=== PATIENT | female | born 1955 | race Caucasian/White ===

== ENCOUNTER 2016-12-29 17:09 | Emergency (ER) | payer MEDICARE, OTHER ==
--- NOTE | ~2016-12-29 | CR127 ---
[facility] A Service of [facility] & [facility] RADIOLOGY TEXT RESULTS PATIENT: SHERRI MOE LOCATION: CFTX : 53 UNIT #: [id number] AGE: [address]: Susana Roa APRN SEX: F ORDER DR: [id number] [facility] [address] [facility]. [place], [place] [address] [id number] E MR#: [id number] Acc #: [id number] NAME: SHERRI MOE : 1955 SEX: F STUDY DATE/TIME: 12/29/2016 19:47 UNIT: [facility] ROOM: STUDY DESCRIPTION: CR Foot Complete Min 3 View Rt Attending Physician: Susana Roa A.P.R.N. Ordering Physician: Susana Roa A.P.R.N. Primary Care Physician: Ricky Cullen M.D. MEDICAL IMAGING REPORT This report is preliminary unless electronic signature is present EXAM Three views right foot. Date: 12/29/2016 HISTORY A 61-year-old female with the medial and plantar foot pain for 3 days. No known injury. COMPARISON None. FINDINGS No fracture. No joint dislocation. No significant osteoarthritic change. No retained radiopaque foreign body. Plantar arch is maintained. IMPRESSION Normal 3 views right foot. Dictated by... Spring Eng M.D. THIS IS AN ELECTRONICALLY VERIFIED REPORT Spring Eng M.D. at 01/02/2017 8:47 AM TREVOR/john TD: 12/30/2016 01:47 JOB #: [id number] MEDICAL IMAGING REPORT Page 1 of 1 COPY
[~2016-12-29 17:09] MED LIST: AMLODIPINE BESY10 MG PO; ASPIRIN81 M2 PO; CALCIUM + D 6001 TA1 PO; KCL PO; PRAVASTATIN SOD40 MG PO; VITAMIN D50000 UNIT PO; ZESTRIL40 MG PO
== END 2016-12-29 20:40 | disposition home or self-care (01) ==
LOC: CFTX 17:09 → CED 17:09 → CFTX 19:53
DX: M72.2 Plantar fascial fibromatosis (principal); E78.5 Hyperlipidemia, unspecified; I10 Essential (primary) hypertension; Z90.710 Acquired absence of both cervix and uterus; Z98.890 Other specified postprocedural states; Z91.041 Radiographic dye allergy status; Z88.5 Allergy status to narcotic agent; Z88.8 Allergy status to other drugs, medicaments and biological substances; F17.210 Nicotine dependence, cigarettes, uncomplicated
CPT/HCPCS: 29540; 73630; 96372; 99283; J1885